=== PATIENT | male | born 1995 | race African-American/Black ===

== ENCOUNTER 2016-07-08 11:41 | Emergency (ER) | payer BC ==
[~2016-07-08] VITALS: Ht 170.2 cm; Wt 59.0 kg
[~2016-07-08 11:41] MED LIST: BACTRIM DS TAB1 EACH PO; IBUPROFEN 600600 M1 PO; NOHOMEMEDICATIONS; OSELB75 PO
[2016-07-08 11:45] VITALS: BP 117/73
[2016-07-08] MEDS ORDERED: FLAGYL500 MG PO (11:57)
[2016-07-08 12:36] LABS: URINE BILIRUBIN NEGATIVE (Negative); URINE BLOOD TRACE (Negative); URINE COLOR YELLOW; URINE GLUCOSE-RANDOM* NEGATIVE (Negative); URINE KETONES NEGATIVE (Negative); URINE NITRITE NEGATIVE (Negative); URINE PROTEIN (DIPSTICK) NEGATIVE (Negative); URINE UROBILINOGEN 0.2 E.U./dl (0.2-1.0)
[2016-07-08 12:48] LABS: CASTS None Seen /LPF (None Seen); CRYSTALS None Seen /LPF (None Seen); SQUAMOUS 0-3 Few /LPF (0-3); URINE WBC >25 Many /HPF (0-5)
[2016-07-08 12:49] LABS: BACTERIA >30 Many /HPF (None Seen); URINE RBC 0-2 Rare /HPF (0-2)
== END 2016-07-08 12:39 | disposition home or self-care (01) ==
LOC: ER 11:41
PROVIDERS: Physician Assistant
DX: R36.9 Urethral discharge, unspecified (principal); Z11.3 Encounter for screening for infections with a predominantly sexual mode of transmission